=== PATIENT | male | born 1990 | race Caucasian/White ===

== ENCOUNTER → 2020-06-20 16:26 | Outpatient (BNVA) | payer MEDICAID, SELFPAY | PROVIDERS: Family Provider Family Medicine; Visit Provider Nurse Practitioner Family | DX: Z11.59 Encounter for screening for other viral diseases (principal) | CPT/HCPCS: 87635 ==

== ENCOUNTER 2021-02-18 13:19 | Emergency (ER) | payer MEDICAID, SELFPAY ==
[2021-02-18 13:57] VITALS: BP 146/103; PULSE 88; RESP 18; TEMP 37.3; O2SAT 97
[2021-02-18 14:51] VITALS: BP 137/93; PULSE 78; RESP 18; O2SAT 97
--- NOTE | 2021-02-18 15:00 | W.ED.GENADLT ---
HPI - General Adult General: Chief complaint: General Medical Stated complaint: Weakness, Numbness in Arms. Time Seen by Provider: 02/18/21 14:56 History of Present Illness: HPI narrative: This patient is a 30-year-old male who presents to the emergency department complaint of sore arms. Patient states this is his first job in his life. Patient's states he is always lived off of Social Security due to disability for ADHD. Patient states after he got Covid he decided to getting a job. He has been working at the local [employer]. Patient states he did a lot of work last night lifting boxes and that he has soreness to his arms bilaterally. Patient does not appear to have an acute complaint or computer injury or illness. We did discuss at length with patient patient states he drinks a lot of energy drinks. I advised the patient to stop drinking some energy drinks and follow-up with primary care. Patient be given a prescription for diclofenac as needed for pain. Patient is instructed to follow-up as instructed Onset (ago): hour(s) Associated symptoms: Deny chest pain, dyspnea, headache(s), nausea, rash, palpitations or vomiting Review of Systems General: Reports: 10 or more systems reviewed and unremarkable except in HPI and below Const: Denies: fever(s), chills, body aches or fatigue Eyes: Denies: change in vision or blurry vision ENMT: Denies: throat pain, hoarseness or mouth pain Card: Denies: chest pain, palpitations, irregular heart rhythm, edema, swelling of feet/ankles or lightheadedness Resp: Denies: dyspnea, productive cough, non-productive cough, wheezing or pain on inspiration GI: Denies: abdominal pain, nausea or vomiting : Denies: flank pain, dysuria, urinary frequency, urinary urgency or urinary hesitancy Musc: Reports: extremity pain; Denies: neck pain, back pain, extremity swelling, joint pain, joint swelling, joint redness, joint warmth or limited range of motion Skin/Breast: Denies: rash, pruritus, erythema or skin tenderness Neuro: Denies: headache(s), numbness in extremities or weakness in extremities Psych: Denies: anxiety or depression Physical Exam Const: COMMON NORMALS: no acute distress, average body habitus, patient oriented x3, no limitations, healthy appearing, alert and well nourished HENMT: COMMON NORMALS: normocephalic, atraumatic, hearing grossly normal bilaterally, external ears normal, EAC's normal, TM's normal bilaterally, Normal external nose present, Normal nasal mucous membranes and turbinates present, moist oral mucous membranes, oropharynx normal, dentition normal and gingiva normal HEAD & SCALP: normocephalic and atraumatic NOSE: Normal external nose present and Normal nasal mucous membranes and turbinates present EXTERNAL EAR: Yes external ears normal EXTERNAL AUDITORY CANAL: EAC's normal TYMPANIC MEMBRANE: TM's normal bilaterally Neck/C-Spine: COMMON NORMALS: full ROM, no lymphadenopathy, supple, no meningeal signs, no JVD, Thyroid normal and No carotid bruits THYROID: Thyroid normal Chest: COMMONS NORMALS: normal inspection of the chest, normal palpation of entire chest wall, normal inspection of the breasts and normal palpation of the breasts Breast/axilla inspection: Yes normal inspection of the breasts BREAST/AXILLA PALPATION: Yes normal palpation of the breasts Resp: COMMON NORMALS: normal respiratory effort, No retractions, No use of accessory muscles, clear to auscultation bilaterally and percussion normal AUSCULTATION: clear to auscultation bilaterally PERCUSSION: percussion normal Cardio: COMMON NORMALS: no JVD, regular rate, regular rhythm, S1 normal heart sound present, S2 normal heart sound present, No gallops present (Cardio), No clicks present (Cardio), No murmurs present (Cardio), No rub (Cardio) and Peripheral pulses 2+ throughout RATE: regular rate RHYTHM: regular rhythm HEART SOUNDS: S1 normal heart sound present and S2 normal heart sound present PERIPHERAL PULSES: Peripheral pulses 2+ throughout GI: COMMON NORMALS: Normal to inspection, nondistended, normoactive bowel sounds present, Soft to palpation, non-tender, No hepatosplenomegaly present, no masses and no bruits PALPATION: Yes Soft to palpation and Yes No hepatosplenomegaly present : COMMON NORMALS: Yes no CVA tenderness BLADDER/KIDNEY EXAM: Yes no CVA tenderness Back/Pelvis: COMMON NORMALS: no CVA tenderness, thoracic and lumbar spine normal to inspection, no thoracic nor lumbar tenderness, thoraco-lumbar ROM normal and straight leg raise negative bilaterally Extremity: COMMON NORMALS: normal to inspection, full ROM, capillary refill normal, no joint enlargement, no clubbing, cyanosis or edema, no calf tenderness and no pedal edema Neuro: COMMON NORMALS: patient oriented x3 SENSORIUM/ORIENTATION: Yes alert MENINGEAL SIGNS: Yes no meningeal signs Course Vital Signs: Vital signs: Vital Signs Temperature 99.2 F 02/18/21 13:57 Pulse Rate 78 02/18/21 14:51 Respiratory Rate 18 02/18/21 14:51 Blood Pressure 137/93 02/18/21 14:51 Pulse Oximetry 97 02/18/21 14:51 MDM - General Adult MDM Narrative: Medical decision making narrative: This patient is a 30-year-old male who presents to the emergency department complaint of sore arms. Patient states this is his first job in his life. Patient's states he is always lived off of Social Security due to disability for ADHD. Patient states after he got Covid he decided to getting a job. He has been working at the local [employer]. Patient states he did a lot of work last night lifting boxes and that he has soreness to his arms bilaterally. Patient does not appear to have an acute complaint or computer injury or illness. We did discuss at length with patient patient states he drinks a lot of energy drinks. I advised the patient to stop drinking some energy drinks and follow-up with primary care. Patient be given a prescription for diclofenac as needed for pain. Patient is instructed to follow-up as instructed Medical Records: Attestation: I reviewed the patient's medical records. Lab Data: Attestation: I reviewed the patient's lab results. Discharge Plan Discharge Patient Disposition: Home Clinical Impression: Arthralgia Condition: Stable Prescriptions: New diclofenac sodium 75 mg tablet,delayed release (DR/EC) 75 mg PO BID PRN (Reason: pain) Qty: 20 RF: 0 Discharge Orders: Discharge ED (Routine); Ordered 02/18/21 Ordered By: Baljeet Dunaway Discharge Diet: Advance as tolerated Discharge Activity: Resume usual activity Patient Instructions: Opioid Safety Activity Restrictions/Additional Instructions: Encourage p.o. fluids. Avoid excessive energy drinks. Take medications as prescribed. May alternate heat and ice as needed. Pain and soreness to the arms. Follow-up with PCP in 2-3 Coding Level of Care Code ED Dredge Hand for Easton Torres
[2021-02-18 15:31] VITALS: BP 137/93; PULSE 78; RESP 18; O2SAT 97
== END 2021-02-18 15:31 | disposition home or self-care (01) ==
PROVIDERS: Emergency Provider Emergency Medicine
DX: M25.59 Pain in other specified joint (principal)
CPT/HCPCS: 99283

== ENCOUNTER 2022-06-01 15:06 | Emergency (ER) | payer MEDICAID, SELFPAY ==
--- NOTE | 2022-06-01 15:10 | XRR_ITS ---
PROCEDURE INFORMATION: Exam: XR Left Knee Exam date and time: 06/01/2022 3:58 PM Age: 32 years old Clinical indication: Pain; Knee; Left; Additional info: Sharp pain in knee TECHNIQUE: Imaging protocol: Radiologic exam of the Left knee. Views: 3 views. COMPARISON: No relevant prior studies available. FINDINGS: Bones/joints: Osseous structures are intact. Negative for fracture. Joint spaces are preserved. Soft tissues: Normal. XR/XR knee LT 3V* [id number] IMPRESSION: No acute findings.
[2022-06-01 15:15] VITALS: BP 121/73; PULSE 70; RESP 16; TEMP 36.7; O2SAT 99; BMI 22.8
--- NOTE | 2022-06-01 15:57 | ED_ITS ---
HPI - Extremity Problem General: Chief complaint: Extremity Injury, Lower Stated complaint: Sharp pain in Left Knee Time Seen by Provider: 06/01/22 15:10 History of Present Illness: Patient is a 32-year-old male who comes to the ED with pain in left knee. He describes it as a sharp pain in his left knee whenever he weightbears. Symptoms have been going on now for approximately 3 days. He denies any known injury or trauma to cause knee pain. Patient does state that he tried to lift a heavy grill into the back of someone's truck the other day before symptoms started and that could potentially have caused his knee pain. He rates his pain currently a 7 out of 10. He has not taken anything today for pain. Associated symptoms: Deny chest pain, fever(s) or rash Review of Systems Const: Denies: fever(s), chills or fatigue Eyes: Denies: change in vision or eye discomfort ENMT: Denies: throat pain, odynophagia, nasal discharge or nasal congestion Card: Denies: chest pain, palpitations, edema, swelling of feet/ankles, dyspnea on exertion or orthopnea Resp: Denies: dyspnea, productive cough or non-productive cough GI: Denies: abdominal pain, nausea, vomiting, diarrhea, constipation or hematochezia : Denies: flank pain, difficulty urinating, dysuria or hematuria Musc: Reports: extremity pain (Left knee pain); Denies: neck pain, back pain or extremity swelling Skin/Breast: Denies: rash or new lesions Neuro: Denies: headache(s), numbness in extremities or weakness in extremities [facility] ED PFSH: Medical History No pertinent family history Surgical History No pertinent past surgical history Physical Exam Const: COMMON NORMALS: no acute distress, patient oriented x3, healthy appearing and alert GENERAL APPEARANCE: cooperative and comfortable HENMT: COMMON NORMALS: normocephalic HEAD & SCALP: normocephalic MOUTH: Normal oral and palatal mucosa present THROAT: posterior oropharynx normal and uvula midline Neck/C-Spine: COMMON NORMALS: supple GENERAL: Yes normal visual inspection Resp: COMMON NORMALS: normal respiratory effort, No retractions, No use of accessory muscles and clear to auscultation bilaterally AUSCULTATION: clear to auscultation bilaterally Cardio: COMMON NORMALS: regular rate, regular rhythm, S1 normal heart sound present, S2 normal heart sound present, No gallops present (Cardio), No clicks present (Cardio), No murmurs present (Cardio) and Peripheral pulses 2+ throughout RATE: regular rate RHYTHM: regular rhythm HEART SOUNDS: S1 normal heart sound present and S2 normal heart sound present PERIPHERAL PULSES: Peripheral pulses 2+ throughout GI: COMMON NORMALS: Normal to inspection, nondistended, normoactive bowel sounds present, Soft to palpation, non-tender and no masses PALPATION: Yes Soft to palpation : COMMON NORMALS: Yes no CVA tenderness BLADDER/KIDNEY EXAM: Yes no CVA tenderness Back/Pelvis: COMMON NORMALS: no CVA tenderness Extremity: COMMON NORMALS: normal to inspection and full ROM NARRATIVE EXTREMITY EXAM: Left knee?no palpable tenderness or deformity noted. No swelling in left knee seen. Neurovascular tact distally. Neuro: COMMON NORMALS: patient oriented x3 SENSORIUM/ORIENTATION: Yes alert GAIT: Yes Normal gait present Skin: GENERAL SKIN EXAM: dry skin Course Vital Signs: Vital signs: Vital Signs Temperature 98.1 F 06/01/22 15:15 Pulse Rate 70 06/01/22 15:15 Respiratory Rate 16 06/01/22 15:15 Blood Pressure 121/73 06/01/22 15:15 Pulse Oximetry 99 06/01/22 15:15 Oxygen Delivery Me thod 06/01/22 15:15 MDM - Extremity (Nontraumatic) Medical Decision Making Patient is a 32-year-old male who comes to the ED with pain in left knee. He describes it as a sharp pain in his left knee whenever he weightbears. Symptoms have been going on now for approximately 3 days. He denies any known injury or trauma to cause knee pain. Vitals are stable. X-ray of left knee shows no acute findings. Patient was diagnosed with left knee pain and was stable for discharge home. Told to follow-up with PCP in the next week for reevaluation. He was sent home with a prescription of Celebrex for pain. Return ED precautions given. Patient understood and agreed with plan. Lab Data Radiology Impressions Knee X-Ray 06/01/22 15:10 IMPRESSION: No acute findings. Discharge Plan Discharge Patient Disposition: Home Clinical Impression: Pain in left knee Qualifiers: Chronicity: acute Qualified Code(s): M25.562 - Pain in left knee Condition: Stable Prescriptions: New celecoxib 100 mg capsule 100 mg PO BID PRN (Reason: pain) Qty: 20 0RF No Action diclofenac sodium 75 mg tablet,delayed release (DR/EC) 75 mg PO BID PRN (Reason: pain) Qty: 20 0RF Discharge Orders: Discharge ED (Routine); Ordered 06/01/22 Ordered By: Bradley Boyd Referrals: Carina Khan PA [Primary Care Provider] - Discharge Diet: Regular Discharge Activity: Increase activity as tolerated Patient Instructions: Knee Pain (ED) Activity Restrictions/Additional Instructions: Follow-up with medical provider as directed in the next 5 to 7 days for reevaluation. Take medications as prescribed. Return to the ER or your medical provider if condition worsens. Please read and understand discharge instructions. Thank you for choosing [facility] for your healthcare needs today. Please realize this is an emergency room and that we are providing you with a medical screening exam and this may not be complete and all inclusive of all the testing and or work up that you may need to determine your ailment or severity of your illness. It is very important that you follow up as instructed or that you return to the Emergency Department should you have concerns or if your condition changes or worsens in any way. Coding Level of Care Code ED Nail Making Machine Setter for Easton Torres Exam Comprehensive
[2022-06-01] MEDS: ketorolac 60 mg/2 mL INJ IM (16:10)
== END 2022-06-01 16:32 | disposition home or self-care (01) ==
PROVIDERS: Emergency Provider Physician Assistant; PCP Physician Assistant
DX: M25.562 Pain in left knee (principal)
CPT/HCPCS: 73562; 96372; 99284; J1885